=== PATIENT | male | born 1965 | race Caucasian/White ===

== ENCOUNTER 2024-04-18 06:37 | Emergency (ER) | payer SELFPAY ==
[2024-04-18 06:51] VITALS: TEMP 97.9; BMI 36.4
[2024-04-18] MEDS: LIDOCAINE 4% PATCH TP ONE (08:03)
[2024-04-18] MEDS: KETOROLAC TROMETHAMINE 30 MG/1 ML VIAL IM ONE (08:04)
[2024-04-18 12:13] VITALS: BP 136/73; PULSE 57; RESP 18
[2024-04-18] MEDS ORDERED: LIDOCAINE PATCH REMOVAL MC SCH (22:00)
== END 2024-04-18 12:16 | disposition home or self-care (01) ==
LOC: JER 06:37
PROC: 3E0233Z Introduction of Anti-inflammatory into Muscle, Percutaneous Approach (ICD-10-PCS; principal; 2024-04-18)
DX: S52.501A Unspecified fracture of the lower end of right radius, initial encounter for closed fracture (principal); R07.81 Pleurodynia; V01.90XA Pedestrian on foot injured in collision with pedal cycle, unspecified whether traffic or nontraffic accident, initial encounter; Y93.01 Activity, walking, marching and hiking
CPT/HCPCS: 70450-TC; 71046-TC-FY; 71250-TC; 72125-TC; 73110-TC-RT-FY; 73130-TC-RT-FY; 93005; 93010; 99285-25